=== PATIENT | female | born 1955 | race Caucasian/White ===

== ENCOUNTER 2017-04-15 15:45 | Inpatient (IN) | payer BC ==
[~2017-04-15] VITALS: Ht 175.3 cm; Wt 103.9 kg
[2017-04-15 15:45] VITALS: BP_SYST 124
--- NOTE | 2017-04-15 15:45 | NUR ---
Arrived via [facility] for chest pain which was 8/10 at 1400 which occured at rest. Patient recieved NTG x 3 and ASA 324mg enrouted pain improved to 2/10. Patient to ER bed 2 to gown for evaluation. Placed on monitor technician. Side rails up. Report given to Jonnathan MICHAELS.
--- NOTE | 2017-04-15 15:50 | NUR ---
PT BIB EMS W/ CP RESOLVING W/NTG.PT H/O PARAPLEGIA AND MS. PT AAOX 4 C/O CP 02/12. NO ACUTE RESP DISTRESS NOTED.
--- NOTE | 2017-04-15 16:00 | NUR ---
ER at bedside examining patient.
[2017-04-15] MEDS ORDERED: MORPHINE 4 MG/ML INJ. SYRINGE IVP ONE (16:30)
[2017-04-15] MEDS ORDERED: ONDANSETRON HCL 4 MG/2 ML VIAL IVP ONE (16:30)
--- NOTE | 2017-04-15 16:30 | NUR ---
PT MEDICATED TO TOLERATED WELL.CONTINUING TO MONITOR.
--- NOTE | 2017-04-15 16:40 | NUR ---
Patient transported to radiology via GURNEY, accompanied by RAD STAFF.
[2017-04-15 16:44] LABS: BASOPHILS % (AUTO) 0.4 % (0.0-2.0); EOSINOPHILS # (AUTO) 0.1 K/uL (0.0-0.4); EOSINOPHILS % (AUTO) 2.5 % (0.0-4.0); HEMATOCRIT 39.1 % (36-48); HEMOGLOBIN 12.7 g/dL (12.0-16.0); LYMPHOCYTES # (AUTO) 0.7 K/uL (1.0-5.5); LYMPHOCYTES % (AUTO) 13.7 % (20.5-51.5); MEAN CORPUSCULAR HEMOGLOBIN 30 pg (27-31); MEAN CORPUSCULAR HGB CONC 33 % (32-36); MEAN CORPUSCULAR VOLUME 92 fL (79.0-98.0); MONOCYTES # (AUTO) 0.5 K/uL (0.0-1.0); MONOCYTES % (AUTO) 9.7 % (1.7-9.3); NEUTROPHILS % (AUTO) 73.7 % (40.0-70.0); PLATELET COUNT (AUTO) 186 K/uL (130-430); RED BLOOD CELL COUNT(AUTO) 4.26 MIL/uL (4.2-6.2); RED CELL DISTRIBUTION WIDTH 13.8 % (9.0-15.0); WHITE BLOOD COUNT (AUTO) 5.3 K/uL (4.8-10.8)
[2017-04-15 16:48] LABS: CALCIUM 9.3 mg/dL (8.4-11.0); CREATININE 0.87 mg/dL (0.55-1.30); POTASSIUM 3.8 mmol/L (3.5-5.1)
[2017-04-15 16:53] LABS: ALBUMIN 3.9 g/dL (3.4-4.8); TOTAL BILIRUBIN 0.4 mg/dL (0.0-1.0); TOTAL PROTEIN, SERUM 7.5 g/dL (6.4-8.3)
[2017-04-15 17:00] LABS: PROTHROMBIN TIME 10.4 SECS (9.5-12.5)
--- NOTE | 2017-04-15 17:00 | NUR ---
PT REPORT PAIN RESOLVED.
[2017-04-15] MEDS ORDERED: FING0.5C3 PO (17:01)
[2017-04-15] MEDS ORDERED: MIRA50TA PO (17:02)
[2017-04-15] MEDS ORDERED: NITROGLYCERIN 0.4 MG TAB.SUBL SL PRN (18:00)
--- NOTE | 2017-04-15 18:00 | NUR ---
Patient will be admitted to care of . Admitted to Telemetry unit. Will go to room 107A. Belongings list completed. Summary report printed. Report will be given at bedside.
--- NOTE | 2017-04-15 18:07 | NUR ---
ADMISSION NOTE Received patient from ER via gurney. Patient admitted with diagnosis of CHEST PAIN. Patient is awake, alert, oriented X 4. Patient has MS and thus is parapalegic. Patient oriented to hospital room, call light, toileting, pain management and safety-teach back done. Patient informed that Nancy will be her nurse and that their room number is 107a. Personal belongings checked and Belongings List documented. Call light within reach.
[2017-04-15 18:10] VITALS: BP_SYST 116
--- NOTE | 2017-04-15 19:37 | NUR ---
Consult Called Reason for consultation: Chest pain R/O AL Was consult called? yes Person who was notified: Radha Consulting Physician: Rom Carney MD Order by Dr. Jose
[2017-04-15 19:45] VITALS: BP_SYST 133
[2017-04-15] MEDS: ACETAMINOPHEN 325 MG TABLET PO PRN (19:49)
--- NOTE | 2017-04-15 19:52 | NUR ---
NOTES RECEIVED THE PT FROM THE DAY NURSE,PT A/A/OX4 O2 VIA NC IN PLACE AT 2L MIN. MONITOR IN PLACE AND SHOWS SR.PT DENIES CHEST PAIN AND SOB.BUT C/O SOME ABDOMINAL PAIN ,TYLENOL WAS GIVEN PO.CALL LIGHT WITHIN REACHSAFETY MEASURES IN PROGRESS.WILL CONTINUE TO MONITOR.
[2017-04-15] MEDS ORDERED: HYDROCORTISONE 1% 28.35 GM TOPICAL OINT. TP PRN (20:30)
--- NOTE | 2017-04-15 20:48 | NUR ---
NOTES DR ESTRADA IS HERE MAKING ROUNDS.
[2017-04-15] MEDS: TEMAZEPAM 15 MG CAPSULE PO PRN (20:53)
[2017-04-15] MEDS ORDERED: NON-FORMULARY MEDICATION (Mirabegron (Myrbetriq) 25 MG) PO SCH (21:00)
[2017-04-15] MEDS ORDERED: FINGOLIMOD HCL 0.5 MG PO SCH (21:00)
--- NOTE | 2017-04-15 21:00 | NUR ---
NOTES PICTURES TAKEN OF RASH TO BOTH LOWER LEGS.
--- NOTE | 2017-04-15 21:30 | NUR ---
NOTES PT RESTING WITH EYES CLOSED.CALL LIGHT WITHIN REACH.CONTINUE TO MONITOR.
--- NOTE | 2017-04-15 22:22 | NUR ---
NOTES SCD APPLIED TO LOWER EXTREMITIES. ORDERED.
--- NOTE | 2017-04-15 23:40 | NUR ---
NOTES PT SLEEPING,CALL LIGHT WITHIN REACH.CONTINUE TO MONITOR.
[2017-04-16 00:28] VITALS: BP_SYST 122
--- NOTE | 2017-04-16 00:52 | NUR ---
notes pt awake alert c/o epigastric pain 05/14. call placed to dr lopes
--- NOTE | 2017-04-16 00:59 | NUR ---
notes dr Jose called back ,new orders taken,blood drawn by the ammunition assembly i laborer.continue to monitor.
[2017-04-16] MEDS ORDERED: ONDANSETRON HCL 4 MG/2 ML VIAL IVP PRN (01:15)
[2017-04-16] MEDS ORDERED: MORPHINE 2 MG/ML INJ. SYRINGE IVP PRN (01:15)
--- NOTE | 2017-04-16 01:37 | NUR ---
NOTES PT RESTING QUIETLY AFTER BEING MEDICATED FOR PAIN.CONTINUE TO MONITOR.
[2017-04-16 01:45] LABS: CREATINE KINASE, TOTAL 57 U/L (26-192)
--- NOTE | 2017-04-16 03:21 | NUR ---
NOTES PT SLEEPING,NO DISTRESS NOTED.CONTINUE TO MONITOR.
[2017-04-16 04:51] VITALS: BP_SYST 136
--- NOTE | 2017-04-16 05:27 | NUR ---
NOTES PT AWAKEN BY THE RESPIRATORY THERAPIST,EKG WAS DONE.
--- NOTE | 2017-04-16 06:21 | NUR ---
NOTES PT REMAINS ASLEEP,WILL ENDORSE THE CARE OF THE PT TO THE DAY NURSE.
[2017-04-16 08:00] VITALS: BP_SYST 125
--- NOTE | 2017-04-16 08:00 | NUR ---
NOTE PT SITTING UP IN BED EATING HER BREAKFAST. NO SOB/RESP DISTRESS OR CHEST PAIN/DISCOMFORT NOTED AT THIS TIME. IV IN LEFT AC INTACT AND PATENT AT THIS TIME. TELE UNIT INTACT AND ATTACHED AT THIS TIME. CALL LIGHT WITHIN REACH.
--- NOTE | 2017-04-16 08:12 | NUR ---
Nutrition Update Mark Scale 16 noted. Pt admitted for Chest pain, Rule out Myocardial infarction. Diet: Cardiac, Low Cholesterol, Low Fat, 2 gm Na diet. BMI: 34 kg/m2 RD to follow per nutrition care standards.
[2017-04-16] MEDS: ASPIRIN 81 MG TAB.CHEW PO SCH (08:22)
[2017-04-16 09:23] LABS: CREATINE KINASE, TOTAL 50 U/L (26-192)
--- NOTE | 2017-04-16 10:00 | NUR ---
NOTE PT WAS SEEN BY DR BRADEN AND ORDERS WRITTEN. PT WAS ASSISTED WITH HYGIENE CARE AND GETTING OOB WITH ASSIST FROM HER AND BRIAN. NO NEEDS NOTED. CALL LIGHT WITHIN REACH.
[2017-04-16] MEDS ORDERED: PANTOPRAZOLE SODIUM 40 MG TAB PO ONE (10:15)
[2017-04-16 11:01] LABS: ALBUMIN 3.4 g/dL (3.4-4.8); CREATININE 0.87 mg/dL (0.55-1.30); POTASSIUM 4.1 mmol/L (3.5-5.1); TOTAL BILIRUBIN 0.6 mg/dL (0.0-1.0); TOTAL PROTEIN, SERUM 6.9 g/dL (6.4-8.3)
[2017-04-16] MEDS ORDERED: PANTOPRAZOLE SODIUM 40 MG/VIAL (PROTONIX) IVP ONE (11:15)
[2017-04-16 11:33] VITALS: BP_SYST 130
--- NOTE | 2017-04-16 12:00 | NUR ---
NOTE PT WAS NOTIFIED AT 1100AM, TO BE NPO FOR US OF ABDOMEN THIS AFTERNOON. PT ALSO HAD ECHO DONE AT BEDSIDE. ECHO NOW COMPLETED AT THIS TIME. PT'S RESTING IN BED. PT'S GONE DOWN TO [place]. REQUESTED FROM PT 2 MEDICATIONS FROM HOME THAT PHARMACY HERE DOES NOT CARRY. 1) FINGOLIMOD 2) MYRBETRIQ. PT WILL ASK TO BRING FROM HOME. NO NEEDS NOTED AT THIS TIME. CALL LIGHT WITHIN REACH.
--- NOTE | 2017-04-16 14:05 | NUR ---
NOTE PT RESTING IN BED WAITING FOR US OF ABDOMEN TO BE DONE. PT'S 2 MEDICATIONS FROM HOME WERE BROUGHT IN BY HER AND GIVEN TO PHARMACY FOR VERIFICATION. NO NEEDS NOTED. CALL LIGHT WITHIN REACH.
--- NOTE | 2017-04-16 14:20 | NUR ---
MARK SCALE EVALUATION: Patient evaluated for a low Mark score of 11. Patient was awake, alert, oriented and received in a Valarie bed with an Atmos Air 9000 mattress. Patient is unable to turn independently secondary to pain and weakness from Multiple Sclerosis. Skin is fair; Left great toe nail bed has dark discoloration; Rash present on bilateral knee areas. Recommend encourage and assist patient with repositioning every 2 hours with pillow support and off-load pressure areas with pillows for pressure re-distribution. Elevate, off-load and float bilateral heels with pillows. Use moisture barrier cream on buttocks and other moisture susceptible areas QID and as needed for soiling. Perform skin care and monitor skin integrity Q shift. Place patient on a low air-loss mattress.
[2017-04-16 15:44] VITALS: BP_SYST 130
--- NOTE | 2017-04-16 16:30 | NUR ---
note pt asleep at this time. pt's at bedside. no needs noted. call light within reach.
--- NOTE | 2017-04-16 18:30 | NUR ---
NOTE PT SITTING UP IN BED EATING HER DINNER. US OF ABDOMEN WAS COMPLETED. NO SOB/RESP DISTRESS OR PAIN/DISCOMFORT NOTED AT THIS TIME. LEFT AC IV INTACT AND PATENT AT THIS TIME. PT'S AND SON AT BEDSIDE AT THIS TIME. NO NEEDS NOTED. CALL LIGHT WITHIN REACH.
--- NOTE | 2017-04-16 19:15 | NUR ---
NOTE DR ESTRADA CALLED FOR RESULTS OF PT'S US OF ABDOMEN. RESULTS NOT AVAILABLE IN [facility], REQUESTED HE BE CALLED SOON RESULTS BECOME AVAILABLE. NIGHT RN OTILIA NOTIFIED AND HE WILL CALL DR ESTRADA SOON RESULTS ARE AVAILABLE ON [facility]. CALL LIGHT WITHIN REACH. NO NEEDS NOTED.
--- NOTE | 2017-04-16 20:26 | NUR ---
MS PAGED PAGED BEBO PAYNE AT [phone] SPOKE WITH LINO.
[2017-04-16 20:37] VITALS: BP_SYST 130
--- NOTE | 2017-04-16 20:39 | NUR ---
initial notes: pt is on bed. awake, alert,oriented x 4. complain of headache. no distress. vital sign are stable. at bedside. explain procedure thalia. need to sign a consent. pt is agreeable. poc care willbe discussed. call light in reach. instructed to use sage. safety on will monitor.
[2017-04-16] MEDS: ACETAMINOPHEN 325 MG TABLET PO PRN (20:55)
[2017-04-16] MEDS: PANTOPRAZOLE SODIUM 40 MG/VIAL (PROTONIX) IVP SCH (20:58)
[2017-04-16] MEDS ORDERED: GILENYA 0.5 MG PO SCH (21:00)
[2017-04-16] MEDS ORDERED: MYRBETRIQ 25 MG TABLET PO SCH (21:00)
[2017-04-16] MEDS ORDERED: PANTOPRAZOLE SODIUM 40 MG TAB PO SCH (21:00)
--- NOTE | 2017-04-16 21:06 | NUR ---
dr. lopes call back- read the abdominal us worksheet report. no order made.
[2017-04-16] MEDS: TEMAZEPAM 15 MG CAPSULE PO PRN (22:19)
--- NOTE | 2017-04-16 22:36 | NUR ---
ROUND NOTES: PT IS BACK TO BED. ASSISTED BY . NO PAIN. PT IS ASKING FOR RESTORIL. INSTRUCTED TO CALL AND NOT GOING OUT OF BED BY SELF. SIDE RAILS UP. CALL LIGHT IN REACH. WILL MONITOR.
--- NOTE | 2017-04-17 00:08 | NUR ---
ROUND NOTES: PT IS SLEEPING, NO DISTRESS. NO PAIN. NO SOB. STABLE. CALL LIGHT IN REACH. WILL MONITOR.
[2017-04-17 01:06] VITALS: BP_SYST 144
--- NOTE | 2017-04-17 02:02 | NUR ---
ROUND NOTES: RESTING, NO DIFFICULTY OF BREATHING. NO PAIN. STABLE. CALL LIGHT IN REACH. WILL MONITOR.
[2017-04-17 04:00] VITALS: BP_SYST 122
--- NOTE | 2017-04-17 04:04 | NUR ---
ROUND NOTES: SLEEPING ON SITTING POSITION ON BED, NO DIFFICULTY OF BREATHING. NO PAIN. STABLE. CALL LIGHT IN REACH. WILL MONITOR.
--- NOTE | 2017-04-17 06:10 | NUR ---
ROUND NOTES: AWAKE, ALERT. NO PAIN. LISTENING TO IPHONE. MAINTAINED ON NPO. NEEDS ATTENDED. CALL LIGHT IN REACH. WILL MONITOR.
--- NOTE | 2017-04-17 07:00 | NUR ---
CLOSING: PT IS AWAKE, ALERT. NO PAIN. STILL LISTENING TO IPHONE. MAINTAINED ON NPO. IV LOCK INTACT. NEEDS ATTENDED. CALL LIGHT IN REACH. WILL GIVE BEDSIDE REPORT TO AM RN.
--- NOTE | 2017-04-17 07:20 | NUR ---
Initial notes: Patient on bed awake, alert and oriented. Stable. I.V. access patent. SCD in placed. Discussed plan of care. Call light within reach. Report received from night cleaner.
[2017-04-17 07:30] LABS: BASOPHILS % (AUTO) 0.3 % (0.0-2.0); EOSINOPHILS # (AUTO) 0.2 K/uL (0.0-0.4); EOSINOPHILS % (AUTO) 3.9 % (0.0-4.0); HEMATOCRIT 38.2 % (36-48); HEMOGLOBIN 12.6 g/dL (12.0-16.0); LYMPHOCYTES # (AUTO) 0.5 K/uL (1.0-5.5); LYMPHOCYTES % (AUTO) 11.3 % (20.5-51.5); MEAN CORPUSCULAR HEMOGLOBIN 31 pg (27-31); MEAN CORPUSCULAR HGB CONC 33 % (32-36); MEAN CORPUSCULAR VOLUME 93 fL (79.0-98.0); MONOCYTES # (AUTO) 0.5 K/uL (0.0-1.0); MONOCYTES % (AUTO) 13.5 % (1.7-9.3); NEUTROPHILS # (AUTO) 2.9 K/uL (1.8-7.7); PLATELET COUNT (AUTO) 148 K/uL (130-430); RED BLOOD CELL COUNT(AUTO) 4.12 MIL/uL (4.2-6.2); RED CELL DISTRIBUTION WIDTH 13.1 % (9.0-15.0); WHITE BLOOD COUNT (AUTO) 4.1 K/uL (4.8-10.8)
[2017-04-17 07:53] LABS: ALBUMIN 3.4 g/dL (3.4-4.8); CALCIUM 9.3 mg/dL (8.4-11.0); CREATININE 0.83 mg/dL (0.55-1.30); POTASSIUM 3.9 mmol/L (3.5-5.1); THYROID STIMULATING HORMONE 3.24 uIu/mL (0.34-4.82); TOTAL BILIRUBIN 0.5 mg/dL (0.0-1.0); TOTAL PROTEIN, SERUM 6.8 g/dL (6.4-8.3)
[2017-04-17 08:00] VITALS: BP_SYST 128
--- NOTE | 2017-04-17 08:15 | NUR ---
Ke: Patient wheeled via gurney by staff to nuclear med room.
[2017-04-17] MEDS ORDERED: REGADENOSON 0.4 MG/5 ML SYRINGE IVP ONE (09:00)
--- NOTE | 2017-04-17 10:13 | NUR ---
rounds: patient back in her room. changing clothes. at bedside.
[2017-04-17] MEDS: ASPIRIN 81 MG TAB.CHEW PO SCH (10:19)
[2017-04-17] MEDS: PANTOPRAZOLE SODIUM 40 MG/VIAL (PROTONIX) IVP SCH (10:20)
--- NOTE | 2017-04-17 11:08 | NUR ---
PT NOTES CHART REVIEWED AND CLEARED FOR PT BY RN. AROUND 0800 ATTEMPT MADE FOR THERAPY, BUT PATIENT IS BEING TAKEN FOR LEXISCAN AT THIS TIME, WILL RETURN AT LATER TIME WHEN PATIENT HAS RETURNED BACK IN ROOM. RETURNED AGAIN AROUND 1030, BUT IS BEING ASSISTED BY RN AND ON CHANGING GOWN AT THIS TIME. RETURNED TO PATIENTS ROOM SHORTLY, PATIENT SITTING UP IN PERSONAL POWER CHAIR EATING BREAKFAST AT THIS TIME. PATIENT STATES, "NO THERAPY TODAY, GOING TO EAT MY FOOD AND THEN HAVE A STRESS TEST LATER". PATIENT ENCOURAGED CONTINUED HEP PARTICIPATION, VERBALIZED UNDERSTANDING. NO OTHER NEEDS AT THIS TIME WHEN ASKED, TRAY IN FRONT. CALL LIGHT IN REACH. LEFT IN CARE OF , RN AWARE. WILL FOLLOW UP PATIENT TOMORROW IF POSSIBLE. PVEx2 Addendum: 04/17/17 at 1306 by Kandace Vickers PT PHYSICAL THERAPY CO-SIGN The Physical Therapy Progress Notes documented by Cia Agent have been reviewed. Reviewed/Co-Signed by: Kandace Vickers PT Documentation Done by: DONNIE SHOOK PTA NO CONSENT FOR CARE, PT EDUCATED ON REHAB DESPITE TEST BUT DECLINED REHAB SERVICE TODAY WILL SEE ON NEXT SCHEDULED VISIT
[2017-04-17 11:30] VITALS: BP_SYST 121
--- NOTE | 2017-04-17 11:39 | NUR ---
STRESS TEST: Patient back to nuclear med room to continue the test.
--- NOTE | 2017-04-17 12:20 | NUR ---
ROUNDS: Patient back in her room.
--- NOTE | 2017-04-17 13:23 | NUR ---
rounds: patient watching tamar cai.
--- NOTE | 2017-04-17 14:20 | NUR ---
rounds: patient sitting on her motor wheelchair. no distress noted.
--- NOTE | 2017-04-17 14:51 | NUR ---
Phone conversation with Nicolette Informed Dr. Carney of the Lexiscan result. He said most likely negative and patient may go home.
--- NOTE | 2017-04-17 15:00 | NUR ---
Nicolette rounds: Seen by Dr. Grimm with D/C order.
[2017-04-17] MEDS ORDERED: PRO40 PO (15:01)
[2017-04-17 15:30] VITALS: BP_SYST 118
[2017-04-17 16:11] VITALS: BP_SYST 118
--- NOTE | 2017-04-17 17:00 | NUR ---
D/C Patient Patient given medication reconciliation form and D/C instructions. Exit Care provided. Patient verbalized understanding. MD discussed with patient the results and treatment provided. Ambulatory with steady gait for discharge to home. Patient in stable condition, ID band removed. IV catheter removed, intact and dressing applied, no active bleeding. Electronic prescription of Protonix given. Patient educated on pain management. All belongings sent with patient.
== END 2017-04-17 17:00 | disposition home or self-care (01) | DRG 392 ==
LOC: SED 15:45 → STU 17:34
PROVIDERS: ADMIT Internal Medicine; ATTEND Internal Medicine
DX: K21.9 Gastro-esophageal reflux disease without esophagitis (principal); G82.20 Paraplegia, unspecified; G35 Multiple sclerosis; N32.81 Overactive bladder; R79.89 Other specified abnormal findings of blood chemistry; K80.20 Calculus of gallbladder without cholecystitis without obstruction; K29.70 Gastritis, unspecified, without bleeding; Z99.3 Dependence on wheelchair
CPT/HCPCS: 36415; 71010; 74000-TC; 76700-TC; 80053; 80061; 82150-TC; 82550-TC; 83690-TC; 84443-TC; 84484; 85025; 85610-TC; 85730-TC; 93005; 93017; 93306; 96374; 96375; 97110-GP; 99285; A9500; C9113; J2270; J2405; J2785

== ENCOUNTER 2018-03-01 21:55 | Inpatient (IN) | payer BC ==
[~2018-03-01] VITALS: Ht 175.3 cm; Wt 87.5 kg
[~2018-03-01 21:55] MED LIST: FING0.5C3 PO; MIRA50TA PO; PRO40 PO
[2018-03-01 22:11] VITALS: BP_SYST 120
[2018-03-01] MEDS ORDERED: KETOROLAC TROMETHAMINE 30 MG VIAL IVP ONE (23:30)
[2018-03-01 23:55] LABS: BASOPHILS # (AUTO) 0.1 K/uL (0.0-0.2); EOSINOPHILS % (AUTO) 0.2 % (0.0-4.0); HEMATOCRIT 36.5 % (36-48); HEMOGLOBIN 12.4 g/dL (12.0-16.0); LYMPHOCYTES # (AUTO) 0.2 K/uL (1.0-5.5); LYMPHOCYTES % (AUTO) 1.4 % (20.5-51.5); MEAN CORPUSCULAR HEMOGLOBIN 32 pg (27-31); MEAN CORPUSCULAR HGB CONC 34 % (32-36); MEAN CORPUSCULAR VOLUME 93 fL (79.0-98.0); MONOCYTES # (AUTO) 0.7 K/uL (0.0-1.0); MONOCYTES % (AUTO) 6.4 % (1.7-9.3); NEUTROPHILS # (AUTO) 9.7 K/uL (1.8-7.7); PLATELET COUNT (AUTO) 158 K/uL (130-430); RED BLOOD CELL COUNT(AUTO) 3.91 MIL/uL (4.2-6.2); WHITE BLOOD COUNT (AUTO) 10.7 K/uL (4.8-10.8)
[2018-03-02] VITALS (8 sets, daily range): BP systolic 101–136
[2018-03-02 00:08] LABS: CALCIUM 9.3 mg/dL (8.4-11.0); CREATININE 0.58 mg/dL (0.55-1.30); POTASSIUM 3.9 mmol/L (3.5-5.1)
[2018-03-02 00:14] LABS: ALBUMIN 3.5 g/dL (3.4-4.8)
[2018-03-02 00:27] LABS: PROTHROMBIN TIME 10.1 SECS (9.5-12.5)
[2018-03-02 01:09] LABS: BILIRUBIN,URINE NEGATIVE (NEGATIVE); CLARITY/URINE CLEAR (CLEAR); COLOR,URINE YELLOW (YELLOW); GLUCOSE,URINE NEGATIVE (NEGATIVE); KETONES,URINE 2+ (NEGATIVE); LEUKOCYTE ESTERASE ,URINE TRACE (NEGATIVE); NITRITE, URINE POSITIVE (NEGATIVE); PH,URINE 5.5 (5.0-8.0); PROTEIN URINE TRACE (NEGATIVE); UROBILINOGEN,URINE 0.2 (0.2-1.0)
[2018-03-02 01:11] LABS: BLOOD, URINE TRACE (NEGATIVE)
[2018-03-02 01:31] LABS: BACTERIA,URINE MODERATE /HPF (None Seen); MUCUS,URINE 1+ /LPF (None Seen)
[2018-03-02] MEDS ORDERED: cefTRIAXone 1 GM IVPB PREMIX 50 ML IV ONE ×2 (01:45→02:23)
[2018-03-02] MEDS ORDERED: metroNIDAZOLE 500 mg/NS 100 ML IV ONE (02:00)
[2018-03-02] MEDS ORDERED: MORPHINE 4 MG/ML INJ. SYRINGE IVP PRN ×2 (02:15→06:15)
[2018-03-02] MEDS ORDERED: fentaNYL CITRATE 250 MCG/5 ML AMP IV ONE (03:45)
[2018-03-02] MEDS ORDERED: NS IRRIG SOLN 1000 ML IR ONE (03:45)
[2018-03-02] MEDS ORDERED: DEXAMETHASONE SOD PHOSPHATE 4 MG/ML VIAL IVP ONE (03:45)
[2018-03-02] MEDS ORDERED: LIDOCAINE 1% 10 MG/ML, 20 ML MDV INJ ONE (03:45)
[2018-03-02] MEDS ORDERED: ONDANSETRON HCL 4 MG/2 ML VIAL IVP ONE ×2 (03:45→06:15)
[2018-03-02] MEDS ORDERED: SUCCINYLCHOLINE CHLORIDE 20 MG/ML(QUELICIN) IVP ONE (03:45)
[2018-03-02] MEDS ORDERED: NS 1000 ML BAG IV ONE (03:45)
[2018-03-02] MEDS ORDERED: MIDAZOLAM HCL 5 MG/5 ML VIAL IVP ONE (03:45)
[2018-03-02] MEDS ORDERED: SEVOFLURANE 15 MIN GAS INH ONE (03:45)
[2018-03-02] MEDS ORDERED: PROPOFOL 200MG/ 20ML VIAL (DIPRIVAN) IV ONE (03:45)
[2018-03-02] MEDS ORDERED: LR 1,000 ML IV.SOLN IV ONE (03:45)
[2018-03-02] MEDS ORDERED: ROCURONIUM BROMIDE 10 MG/ML (ZEMURON) IV ONE (03:45)
[2018-03-02] MEDS ORDERED: ONDANSETRON HCL 4 MG/2 ML VIAL IVP PRN ×2 (04:00→06:00)
[2018-03-02] MEDS ORDERED: ACETAMINOPHEN/CODEINE 300 MG-30 MG TABLET PO PRN (04:00)
[2018-03-02] MEDS ORDERED: D5LR 1,000 ML IV SCH (04:00)
[2018-03-02] MEDS ORDERED: PIPERACILLIN/TAZOBACTAM 3.375 GM/VIAL (ZOSYN) IV ONE (04:19)
[2018-03-02] MEDS: NACL 0.9% 1,000 ML IV SCH (05:48)
[2018-03-02] MEDS ORDERED: BISACODYL 10 MG/SUPPOSITORY RC PRN (06:00)
[2018-03-02] MEDS ORDERED: POTASSIUM CHLORIDE 20 MEQ TAB.PRT.SR PO PRN (06:00)
[2018-03-02] MEDS ORDERED: PIPERACILLIN/TAZO 3.375/DEX-IS 50 ML IV SCH (06:00)
[2018-03-02] MEDS ORDERED: ONDANSETRON HCL 4 MG/2 ML VIAL IM PRN (06:00)
[2018-03-02] MEDS ORDERED: LORazepam 2 MG/ML VIAL IVP PRN (06:00)
[2018-03-02] MEDS ORDERED: SIMETHICONE 80 MG TAB.CHEW PO PRN (06:00)
[2018-03-02] MEDS ORDERED: fentaNYL CITRATE/PF 100 MCG/2 ML AMP IVP PRN (06:15)
[2018-03-02] MEDS ORDERED: MEPERIDINE HCL/PF 25 MG/ML DISP.SYRIN IVP PRN (06:15)
[2018-03-02] MEDS ORDERED: NALOXONE HCL 0.4 MG/ML AMP (NARCAN) IVP ONE (06:15)
[2018-03-02] MEDS ORDERED: MIDAZOLAM HCL 5 MG/5 ML VIAL IVP PRN (06:15)
[2018-03-02] MEDS ORDERED: MEPERIDINE HCL/PF 25 MG/ML DISP.SYRIN ONE (06:35)
[2018-03-02] MEDS: MORPHINE 4 MG/ML INJ. SYRINGE ONE ×2 (06:55→07:10)
[2018-03-02] MEDS: MORPHINE 4 MG/ML INJ. SYRINGE IVP PRN ×3 (07:57→20:52)
[2018-03-02 08:16] LABS: FREE T4 (FREE THYROXINE) 1.3 ng/dL (0.6-1.6); PHOSPHORUS 4.4 mg/dL (2.7-4.5); THYROID STIMULATING HORMONE 1.69 uIu/mL (0.34-4.82)
[2018-03-02] MEDS: PIPERACILLIN/TAZO 3.375 GM in NS 50 ML IV SCH ×4 (08:58→23:29)
[2018-03-02] MEDS ORDERED: IPRATROPIUM/ALBUTEROL SULFATE 3 ML AMPUL.NEB INH PRN (09:00)
[2018-03-02] MEDS: IPRATROPIUM/ALBUTEROL SULFATE 3 ML AMPUL.NEB INH SCH ×4 (11:52→23:15)
[2018-03-02] MEDS: DOCUSATE SODIUM 100 MG CAPSULE PO SCH ×2 (11:55→23:28)
[2018-03-02] MEDS: SIMETHICONE 80 MG TAB.CHEW PO SCH ×3 (11:56→23:28)
[2018-03-02] MEDS: ENOXAPARIN SODIUM 40 MG/0.4 ML SYRINGE SUBCUT SCH (11:56)
[2018-03-02] MEDS: PANTOPRAZOLE SODIUM 40 MG TAB PO SCH ×2 (11:56→23:29)
[2018-03-02] MEDS ORDERED: ZOLPIDEM TARTRATE 5 MG TABLET PO PRN (21:00)
[2018-03-03 02:04] VITALS: BP_SYST 126
[2018-03-03] MEDS: IPRATROPIUM/ALBUTEROL SULFATE 3 ML AMPUL.NEB INH SCH ×6 (03:48→23:07)
[2018-03-03] MEDS: NACL 0.9% 1,000 ML IV SCH ×2 (05:12→15:08)
[2018-03-03] MEDS: PIPERACILLIN/TAZO 3.375 GM in NS 50 ML IV SCH ×4 (06:34→23:17)
[2018-03-03 07:16] LABS: BASOPHILS % (AUTO) 0.1 % (0.0-2.0); EOSINOPHILS % (AUTO) 0.1 % (0.0-4.0); HEMATOCRIT 33.6 % (36-48); HEMOGLOBIN 11.2 g/dL (12.0-16.0); LYMPHOCYTES # (AUTO) 0.2 K/uL (1.0-5.5); MEAN CORPUSCULAR HEMOGLOBIN 32 pg (27-31); MEAN CORPUSCULAR HGB CONC 33 % (32-36); MEAN CORPUSCULAR VOLUME 95 fL (79.0-98.0); MONOCYTES # (AUTO) 0.7 K/uL (0.0-1.0); MONOCYTES % (AUTO) 10.1 % (1.7-9.3); NEUTROPHILS # (AUTO) 6.5 K/uL (1.8-7.7); NEUTROPHILS % (AUTO) 86.7 % (40.0-70.0); PLATELET COUNT (AUTO) 140 K/uL (130-430); RED BLOOD CELL COUNT(AUTO) 3.54 MIL/uL (4.2-6.2); RED CELL DISTRIBUTION WIDTH 13.7 % (9.0-15.0); WHITE BLOOD COUNT (AUTO) 7.4 K/uL (4.8-10.8)
[2018-03-03 07:43] LABS: CALCIUM 8.7 mg/dL (8.4-11.0); CREATININE 0.84 mg/dL (0.55-1.30); PHOSPHORUS 3.2 mg/dL (2.7-4.5); POTASSIUM 3.8 mmol/L (3.5-5.1)
[2018-03-03 08:05] VITALS: BP_SYST 122
[2018-03-03] MEDS: PANTOPRAZOLE SODIUM 40 MG TAB PO SCH ×2 (08:30→20:11)
[2018-03-03] MEDS: ENOXAPARIN SODIUM 40 MG/0.4 ML SYRINGE SUBCUT SCH (08:30)
[2018-03-03] MEDS: SIMETHICONE 80 MG TAB.CHEW PO SCH ×3 (08:30→20:12)
[2018-03-03] MEDS: DOCUSATE SODIUM 100 MG CAPSULE PO SCH ×2 (08:31→20:12)
[2018-03-03] MEDS: MORPHINE 4 MG/ML INJ. SYRINGE IVP PRN (08:50)
[2018-03-03 11:20] LABS: HEMOGLOBIN A1C 5.3 % (4.8-5.6)
[2018-03-03 13:04] VITALS: BP_SYST 110
[2018-03-03] MEDS: HYDROcodone/ACETAMIN 10-325 MG TAB PO PRN ×2 (14:54→21:23)
[2018-03-03 16:04] VITALS: BP_SYST 109
[2018-03-03] MEDS: ACETAMINOPHEN 325 MG TABLET PO PRN (17:13)
[2018-03-03 20:00] VITALS: BP_SYST 111
[2018-03-04 00:42] VITALS: BP_SYST 108
[2018-03-04] MEDS: NACL 0.9% 1,000 ML IV SCH (01:59)
[2018-03-04] MEDS: IPRATROPIUM/ALBUTEROL SULFATE 3 ML AMPUL.NEB INH SCH ×6 (02:02→23:07)
[2018-03-04] MEDS: HYDROcodone/ACETAMIN 10-325 MG TAB PO PRN ×3 (05:01→22:05)
[2018-03-04] MEDS: PIPERACILLIN/TAZO 3.375 GM in NS 50 ML IV SCH ×3 (05:03→19:07)
[2018-03-04 07:11] LABS: BASOPHILS % (AUTO) 0.1 % (0.0-2.0); EOSINOPHILS % (AUTO) 0.5 % (0.0-4.0); HEMATOCRIT 29.9 % (36-48); HEMOGLOBIN 10.1 g/dL (12.0-16.0); LYMPHOCYTES # (AUTO) 0.1 K/uL (1.0-5.5); LYMPHOCYTES % (AUTO) 1.5 % (20.5-51.5); MEAN CORPUSCULAR HEMOGLOBIN 32 pg (27-31); MEAN CORPUSCULAR HGB CONC 34 % (32-36); MEAN CORPUSCULAR VOLUME 94 fL (79.0-98.0); MONOCYTES # (AUTO) 0.5 K/uL (0.0-1.0); NEUTROPHILS # (AUTO) 6.6 K/uL (1.8-7.7); NEUTROPHILS % (AUTO) 90.9 % (40.0-70.0); PLATELET COUNT (AUTO) 146 K/uL (130-430); RED BLOOD CELL COUNT(AUTO) 3.18 MIL/uL (4.2-6.2); RED CELL DISTRIBUTION WIDTH 13.6 % (9.0-15.0); WHITE BLOOD COUNT (AUTO) 7.2 K/uL (4.8-10.8)
[2018-03-04 07:34] LABS: CALCIUM 8.7 mg/dL (8.4-11.0); CREATININE 0.7 mg/dL (0.55-1.30); PHOSPHORUS 2.7 mg/dL (2.7-4.5); POTASSIUM 3.7 mmol/L (3.5-5.1)
[2018-03-04 08:45] VITALS: BP_SYST 96
[2018-03-04] MEDS: DOCUSATE SODIUM 100 MG CAPSULE PO SCH ×2 (09:26→21:39)
[2018-03-04] MEDS: PANTOPRAZOLE SODIUM 40 MG TAB PO SCH ×2 (09:26→21:39)
[2018-03-04] MEDS: SIMETHICONE 80 MG TAB.CHEW PO SCH ×3 (09:26→21:39)
[2018-03-04] MEDS: ENOXAPARIN SODIUM 40 MG/0.4 ML SYRINGE SUBCUT SCH (09:26)
[2018-03-04 12:01] VITALS: BP_SYST 103
[2018-03-04] MEDS: ACETAMINOPHEN 325 MG TABLET PO PRN (13:14)
[2018-03-04 16:08] VITALS: BP_SYST 130
[2018-03-04 20:30] VITALS: BP_SYST 101
[2018-03-05] VITALS (7 sets, daily range): BP systolic 109–148
[2018-03-05] MEDS: PIPERACILLIN/TAZO 3.375 GM in NS 50 ML IV SCH ×4 (00:37→17:41)
[2018-03-05] MEDS: IPRATROPIUM/ALBUTEROL SULFATE 3 ML AMPUL.NEB INH SCH ×6 (02:04→23:35)
[2018-03-05] MEDS: NACL 0.9% 1,000 ML IV SCH ×2 (05:46→06:05)
[2018-03-05] MEDS: HYDROcodone/ACETAMIN 10-325 MG TAB PO PRN ×2 (06:45→13:10)
[2018-03-05 07:06] LABS: BASOPHILS % (AUTO) 0.1 % (0.0-2.0); EOSINOPHILS # (AUTO) 0.1 K/uL (0.0-0.4); EOSINOPHILS % (AUTO) 1.4 % (0.0-4.0); HEMOGLOBIN 9.6 g/dL (12.0-16.0); LYMPHOCYTES # (AUTO) 0.3 K/uL (1.0-5.5); LYMPHOCYTES % (AUTO) 3.6 % (20.5-51.5); MEAN CORPUSCULAR HEMOGLOBIN 32 pg (27-31); MEAN CORPUSCULAR HGB CONC 33 % (32-36); MONOCYTES # (AUTO) 0.7 K/uL (0.0-1.0); MONOCYTES % (AUTO) 7.8 % (1.7-9.3); NEUTROPHILS # (AUTO) 7.5 K/uL (1.8-7.7); NEUTROPHILS % (AUTO) 87.1 % (40.0-70.0); PLATELET COUNT (AUTO) 182 K/uL (130-430); RED BLOOD CELL COUNT(AUTO) 3.04 MIL/uL (4.2-6.2); RED CELL DISTRIBUTION WIDTH 13.4 % (9.0-15.0); WHITE BLOOD COUNT (AUTO) 8.6 K/uL (4.8-10.8)
[2018-03-05 07:14] LABS: MEAN CORPUSCULAR VOLUME 96 fL (79.0-98.0)
[2018-03-05 07:24] LABS: CALCIUM 8.7 mg/dL (8.4-11.0); CREATININE 0.56 mg/dL (0.55-1.30); PHOSPHORUS 2.4 mg/dL (2.7-4.5); POTASSIUM 3.6 mmol/L (3.5-5.1)
[2018-03-05] MEDS: ENOXAPARIN SODIUM 40 MG/0.4 ML SYRINGE SUBCUT SCH (08:54)
[2018-03-05] MEDS: SIMETHICONE 80 MG TAB.CHEW PO SCH ×3 (08:54→21:09)
[2018-03-05] MEDS: DOCUSATE SODIUM 100 MG CAPSULE PO SCH ×2 (08:54→21:08)
[2018-03-05] MEDS: PANTOPRAZOLE SODIUM 40 MG TAB PO SCH ×2 (08:54→21:09)
[2018-03-05] MEDS: MORPHINE 4 MG/ML INJ. SYRINGE IVP PRN (19:40)
[2018-03-05] MEDS: metroNIDAZOLE 250 mg/NS 50 ML IV SCH (21:09)
[2018-03-06 00:03] VITALS: BP_SYST 127
[2018-03-06] MEDS: PIPERACILLIN/TAZO 3.375 GM in NS 50 ML IV SCH ×5 (01:01→23:29)
[2018-03-06] MEDS: MORPHINE 4 MG/ML INJ. SYRINGE IVP PRN (01:08)
[2018-03-06] MEDS: IPRATROPIUM/ALBUTEROL SULFATE 3 ML AMPUL.NEB INH SCH ×6 (03:00→23:10)
[2018-03-06] MEDS: metroNIDAZOLE 250 mg/NS 50 ML IV SCH ×3 (06:05→21:55)
[2018-03-06] MEDS: HYDROcodone/ACETAMIN 10-325 MG TAB PO PRN ×3 (06:11→20:25)
[2018-03-06 08:00] VITALS: BP_SYST 121
[2018-03-06] MEDS: DOCUSATE SODIUM 100 MG CAPSULE PO SCH ×2 (09:21→20:24)
[2018-03-06] MEDS: PANTOPRAZOLE SODIUM 40 MG TAB PO SCH ×2 (09:21→20:24)
[2018-03-06] MEDS: SIMETHICONE 80 MG TAB.CHEW PO SCH ×3 (09:23→20:24)
[2018-03-06] MEDS: ENOXAPARIN SODIUM 40 MG/0.4 ML SYRINGE SUBCUT SCH (09:25)
[2018-03-06 12:00] VITALS: BP_SYST 126
[2018-03-06 16:44] VITALS: BP_SYST 114
[2018-03-06] MEDS: NACL 0.9% 1,000 ML IV SCH ×2 (21:55→23:31)
[2018-03-06 23:48] VITALS: BP_SYST 98
[2018-03-07] MEDS: IPRATROPIUM/ALBUTEROL SULFATE 3 ML AMPUL.NEB INH SCH ×5 (03:20→20:13)
[2018-03-07] MEDS: MORPHINE 4 MG/ML INJ. SYRINGE IVP PRN ×2 (03:27→16:55)
[2018-03-07] MEDS: PIPERACILLIN/TAZO 3.375 GM in NS 50 ML IV SCH ×4 (05:20→23:43)
[2018-03-07] MEDS: metroNIDAZOLE 250 mg/NS 50 ML IV SCH ×3 (06:08→21:26)
[2018-03-07] MEDS: HYDROcodone/ACETAMIN 10-325 MG TAB PO PRN ×4 (07:33→23:43)
[2018-03-07] MEDS: DOCUSATE SODIUM 100 MG CAPSULE PO SCH ×2 (08:33→21:26)
[2018-03-07] MEDS: SIMETHICONE 80 MG TAB.CHEW PO SCH ×3 (08:33→21:26)
[2018-03-07] MEDS: PANTOPRAZOLE SODIUM 40 MG TAB PO SCH ×2 (08:33→21:26)
[2018-03-07] MEDS: ENOXAPARIN SODIUM 40 MG/0.4 ML SYRINGE SUBCUT SCH (08:34)
[2018-03-07 08:38] VITALS: BP_SYST 108
[2018-03-07 14:44] VITALS: BP_SYST 109
[2018-03-07 16:04] VITALS: BP_SYST 131
[2018-03-07] MEDS: NACL 0.9% 1,000 ML IV SCH (18:48)
[2018-03-08 00:35] VITALS: BP_SYST 111
[2018-03-08] MEDS: IPRATROPIUM/ALBUTEROL SULFATE 3 ML AMPUL.NEB INH SCH ×4 (00:51→11:31)
[2018-03-08] MEDS: HYDROcodone/ACETAMIN 10-325 MG TAB PO PRN ×3 (04:49→15:25)
[2018-03-08] MEDS: PIPERACILLIN/TAZO 3.375 GM in NS 50 ML IV SCH ×2 (05:17→12:04)
[2018-03-08] MEDS: metroNIDAZOLE 250 mg/NS 50 ML IV SCH ×2 (06:14→14:08)
[2018-03-08 08:00] VITALS: BP_SYST 126
[2018-03-08] MEDS: DOCUSATE SODIUM 100 MG CAPSULE PO SCH (09:16)
[2018-03-08] MEDS: SIMETHICONE 80 MG TAB.CHEW PO SCH ×2 (09:16→15:26)
[2018-03-08] MEDS: PANTOPRAZOLE SODIUM 40 MG TAB PO SCH (09:16)
[2018-03-08] MEDS: ENOXAPARIN SODIUM 40 MG/0.4 ML SYRINGE SUBCUT SCH (09:16)
[2018-03-08] MEDS: NACL 0.9% 1,000 ML IV SCH (11:48)
[2018-03-08] MEDS ORDERED: LEVO500T20 PO (13:24)
[2018-03-08] MEDS ORDERED: METR500T PO (13:25)
[2018-03-08 16:35] VITALS: BP_SYST 127
== END 2018-03-08 18:00 | DRG 853 ==
LOC: SED 21:55 → SMU 03-02 02:13
PROVIDERS: ADMIT Family Medicine; ATTEND Family Medicine
PROC: 0DNU4ZZ Release Omentum, Percutaneous Endoscopic Approach (ICD-10-PCS; 2018-03-02)
PROC: 0DNH4ZZ Release Cecum, Percutaneous Endoscopic Approach (ICD-10-PCS; 2018-03-02)
PROC: 0DTJ0ZZ Resection of Appendix, Open Approach (ICD-10-PCS; principal; 2018-03-02 03:30)
DX: A41.9 Sepsis, unspecified organism (principal); N17.0 Acute kidney failure with tubular necrosis; K35.3 Acute appendicitis with localized peritonitis; N39.0 Urinary tract infection, site not specified; G89.4 Chronic pain syndrome; G35 Multiple sclerosis; K66.0 Peritoneal adhesions (postprocedural) (postinfection); K21.9 Gastro-esophageal reflux disease without esophagitis; B96.20 Unspecified Escherichia coli [E. coli] as the cause of diseases classified elsewhere; M19.90 Unspecified osteoarthritis, unspecified site; Z16.24 Resistance to multiple antibiotics; Z99.3 Dependence on wheelchair
CPT/HCPCS: 36415; 71045; 74021; 80048; 80053; 80061; 81000-TC; 82150-TC; 83036; 83690-TC; 83735-TC; 83880; 84100-TC; 84436; 84439; 84443-TC; 84479; 85025; 85610-TC; 87040-TC; 87070; 87070-TC; 87075-TC; 87081; 87086; 87186-TC; 88304; 94640; 94760; 96365; 96375; 97110-GP; 97530-GP; 99285; C1727; J0330; J0696; J1100; J1650; J1885; J2001; J2175; J2250; J2270; J2405; J2543; J2704; J3010; J3490; J7030; J7120; J7620